=== PATIENT | female | born 1985 | race African-American/Black ===

== ENCOUNTER 2022-07-24 16:28 | Inpatient (IN) | payer MEDICARE, OTHER ==
[~2022-07-24] VITALS: Ht 160 cm; Wt 102.1 kg
[2022-07-24 16:00] VITALS: BP 133/80
[2022-07-24] MEDS ORDERED: CHOL100043 PO (17:22)
[2022-07-24] MEDS ORDERED: BENZ1LOZ58 MM (17:22)
[2022-07-24] MEDS ORDERED: SENN-261 PO (17:22)
[2022-07-24] MEDS ORDERED: CARV3.122 PO (17:22)
[2022-07-24] MEDS ORDERED: PREG-57 PO (17:22)
[2022-07-24] MEDS ORDERED: HYDR4TAB4 PO (17:22)
[2022-07-24] MEDS ORDERED: DOCU-141 PO (17:22)
[2022-07-24] MEDS ORDERED: IPRA0.2S9 IH (17:22)
[2022-07-24] MEDS ORDERED: ACET-2605 PO (17:22)
[2022-07-24] MEDS ORDERED: BICT1TAB PO (17:22)
[2022-07-24] MEDS ORDERED: PANT40TA49 PO (17:22)
[2022-07-24] MEDS ORDERED: DIVA-78 PO (17:22)
[2022-07-24] MEDS ORDERED: ALBU18HF2 INH (17:22)
[2022-07-24] MEDS ORDERED: MIDO5TAB4 PO (17:22)
[2022-07-24] MEDS ORDERED: ACET-868 PO (17:22)
[2022-07-24] MEDS ORDERED: HYDR-4077 PO (17:22)
[2022-07-24] MEDS ORDERED: FENO48TA6 PO (17:22)
[2022-07-24] MEDS ORDERED: FOLI0.8T2 PO (17:22)
[2022-07-24] MEDS ORDERED: ATOR40TA PO (17:22)
[2022-07-24] MEDS ORDERED: OLAN10TA3 PO (17:22)
[2022-07-24] MEDS ORDERED: Z GUARD REMEDY 4 OZ OINT TP PRN (17:30)
[2022-07-24] MEDS ORDERED: ACETAMINOPHEN 325 MG TABLET PO PRN (17:30)
[2022-07-24] MEDS ORDERED: ONDANSETRON HCL/PF 4 MG/2 ML VIAL IVP PRN (17:30)
[2022-07-24] MEDS ORDERED: CEFTRIAXONE 1 G in IV D5W 50 ML IV SCH ×2 (18:00→20:00)
[2022-07-24] MEDS ORDERED: VANCOMYCIN 1.25 GM in IV D5W 250 ML IV ONE (18:30)
--- NOTE | 2022-07-24 18:53 | NUR ---
PT REFUSED AN ECHOCARDIOGRAM, BLAKE KING WAS ADVISED.
[2022-07-24] MEDS ORDERED: ALBUTEROL SULFATE 8 GM HFA.AER.AD IH PRN (19:00)
[2022-07-24] MEDS ORDERED: IPRATROPIUM NEB FS 0.5 MG/2.5 ML AMPUL.NEB NEB PRN (19:00)
[2022-07-24] MEDS ORDERED: HYDROMORPHONE HCL 2 MG TABLET PO PRN (19:00)
[2022-07-24] MEDS ORDERED: DOCUSATE SODIUM 100 MG CAPSULE PO PRN (19:00)
--- NOTE | 2022-07-24 19:00 | NUR ---
TUGBOAT ENGINEER NOTES ADMITTED A 36 YO FEMAL PATIENT FROM [facility] WITH DX OF R/O TB , A/OX4 WITH FORGETFULNESS , ON ISOLATION FOR SUSPECTED TB , VERBALLY RESPONSIVE , NO C/O OF PAIN AND DISCOMFORT , NO SOB OR DISTRESS NOTED , BODY ASSESSMENT DONE AND NOTED WITH LEFT UPPER ARM FISTULA , FOR DIALYSIS ACCESS , RIGHT FOREARM IV G22 INTACT , DISTENDED ABDOMEN MEASURED 126 CM , DRY SCALY SKIN ON LEFT LOWER LEG , ON 3 LITERS OF O2 VIA NS CANULA , V/S TAKEN BP 133/80 , P 73 , RR 18 , TEMP 97.7 AND O2SAT 100% . AMBULATORY WITH BRP , STARTED WITH VANCOMYCIN IV ORDERED , ABLE TO EAT DINNER ON RENAL DIET 100% . SR U PX2 , SAFETY PRECAUTIONS PROVIDED , ALL BELONGINGS WERE CHECKED ON THE FORM , PHOTOS WERE TAKEN AND FILED , ALL NEEDS ATTENDED AND WILL CONTINUE TO MONITOR
[2022-07-24] MEDS ORDERED: ALBUTEROL FS 2.5 MG/0.5 ML VIAL.NEB NEB PRN (19:30)
--- NOTE | 2022-07-24 19:30 | NUR ---
MS RN OPENING NOTES RECEIVED PT LYING IN BED AWAKE. A/O X4. ON O2 AT 3LPM VIA NASAL CANULA. BREATHING EVEN AND NON-LABORED. NO C/O PAIN AT THIS TIME. NOT IN APPARENT DISTRESS. HAS RIGHT FOREARM IV ACCESS #22G WITH VANCO 500MG RUNNING AT 100 ML/HR. NO S/S OF INFILTRATION NOTED. HAS LEFT UPPER ARM AV FISTULA. THRILLS AND BRUITS PRESENT. SAFETY PRECAUTIONS IN PLACE: BED IN LOWEST POSITION AND LOCKED, SIDE RAILS UP X2, CALL LIGHT WITHIN REACH. WILL CONTINUE POC.
[2022-07-24 20:00] VITALS: BP 121/73
[2022-07-24] MEDS: MORPHINE SULFATE INJ 4 MG/ML DISP.SYRIN IV PRN (21:04)
[2022-07-24] MEDS: hydrALAZINE HCL 50 MG TABLET PO SCH (21:04)
--- NOTE | 2022-07-24 21:10 | NUR ---
MS RN NOTES PT C/O PULSATING PAIN ON HER ABDOMEN 07/14. PER PT, IT IS CHRONIC. VS WNL. ADMINISTERED PRN MORPHINE 4MG. TOLERATED WELL.
[2022-07-24] MEDS: PREGABALIN 25 MG CAPSULE PO SCH (21:27)
[2022-07-24] MEDS: ATORVASTATIN 40 MG TABLET PO SCH (21:27)
[2022-07-24] MEDS: CEFTRIAXONE 1 G in IV D5W 50 ML IV SCH (21:27)
--- NOTE | 2022-07-24 23:40 | NUR ---
MS RN NOTES PT C/O GENERALIZED PAIN 08/13. ADMINISTERED PRN DILAUDID. TOLERATED WELL, WILL CONTINUE TO MONITOR.
[2022-07-25] MEDS: SENNOSIDES 8.6 MG TABLET PO PRN ×2 (02:27→21:16)
[2022-07-25] MEDS: MORPHINE SULFATE INJ 4 MG/ML DISP.SYRIN IV PRN ×4 (02:27→21:18)
--- NOTE | 2022-07-25 02:30 | NUR ---
MS RN NOTES PT C/O LOWER ABDOMINAL PAIN 07/14. PT ALERT, NORMAL RR NOTED. ADMINISTERED WA MORPHINE. TOLERATED WELL. WILL CONTINUE TO MONITOR.
--- NOTE | 2022-07-25 06:21 | NUR ---
MS RN CLOSING NOTES PT LYING IN BED ASLEEP, EASY TO AROUSE. A/O X4, ABLE TO MAKE NEEDS KNOWN. ON O2 AT 3LPM VIA NASAL CANULA. NO SOB OR NOTED. NO C/O PAIN OR DISCOMFORT. AFEBRILE. ON AIRBORNE PRECAUTION. HAS RIGHT FOREARM IV ACCESS #22G AND SALINE LOCKED. INTACT, PATENT AND FLUSHING. HAS LEFT UPPER ARM AV FISTULA C/D/I. ALL DUE MEDS GIVEN AND NEEDS ATTENDED. AMBULATORY W/ STEADY GAIT. SAFETY MEASURES MAINTAINED: BED IN LOWEST POSITION AND LOCKED, SIDE RAILS UP X2, CALL LIGHT WITHIN REACH. WILL ENDORSE TO AM NURSE FOR DIONE.
[2022-07-25] MEDS: PANTOPRAZOLE 40 MG TABLET.DR PO SCH (06:57)
--- NOTE | 2022-07-25 07:12 | NUR ---
MS RN OPENING NOTES RECEIVED PATIENT RESTING IN BED, ON 3L OF O2 VIA NC, NO S/S OF RESPIRATORY DISTRESS. EASY TO AROUSE, A/Ox4, ABLE TO MAKE NEEDS KNOWN. NO COMPLAINT OF PAIN OR DISCOMFORT. IV ACCESS R FA #22 G SL. INTACT AND PATENT. QUIRINO AV FISTULA. CONTINENT, HAS BRP. AMBULATORY. SKIN IS INTACT. SAFETY MEASURES IN PLACE: BED LOCKED AND IN LOWEST POSITION, SIDE RAILS UP x2, CALL LIGHT WITHIN REACH, HOB ELEVATED. WILL CONTINUE TO MONITOR.
[2022-07-25] MEDS ORDERED: PANTOPRAZOLE 40 MG TABLET.DR PO SCH (07:30)
[2022-07-25] MEDS: DIVALPROEX SODIUM 500 MG TABLET.DR PO SCH (08:19)
[2022-07-25] MEDS: OLANZAPINE 10 MG TABLET PO SCH (08:19)
[2022-07-25] MEDS: CARVEDILOL 3.125 MG TABLET PO SCH ×2 (08:20→17:00)
[2022-07-25] MEDS: hydrALAZINE HCL 50 MG TABLET PO SCH ×4 (08:21→20:59)
[2022-07-25 08:22] LABS: CALCIUM, SERUM 7.5 mg/dL (8.5-10.1); MAGNESIUM 2.2 mg/dL (1.8-2.4); PHOSPHORUS 6.1 mg/dL (2.5-4.9); POTASSIUM 5.3 mmol/L (3.5-5.1)
[2022-07-25 08:44] LABS: BASOPHILS % (AUTO) 0.7 % (0.0-2.0); EOSINOPHILS % (AUTO) 2.3 % (0.0-6.0); HEMATOCRIT 33 % (33-45); HEMOGLOBIN 10.5 g/dL (11.5-14.8); LYMPHOCYTES # (AUTO) 0.7 K/uL (0.8-4.8); LYMPHOCYTES % (AUTO) 20.3 % (20.0-44.0); MEAN CORPUSCULAR HGB CONC 32 g/dl (31.0-36.0); MEAN CORPUSCULAR VOLUME 99 fL (82-100); MONOCYTES # (AUTO) 0.5 K/uL (0.1-1.30); MONOCYTES % (AUTO) 14.9 % (2.0-12.0); NEUTROPHILS # (AUTO) 2.2 K/uL (1.8-8.9); NEUTROPHILS % (AUTO) 61.8 % (43.0-81.0); PLATELET COUNT (AUTO) 158 K/uL (150-450); RED BLOOD CELL COUNT(AUTO) 3.36 MIL/uL (4.0-5.2); WHITE BLOOD COUNT (AUTO) 3.5 K/uL (4.3-11.0)
[2022-07-25] MEDS: Fenofibrate 48 MG TABLET PO SCH (09:54)
[2022-07-25 11:32] VITALS: BP 138/84
--- NOTE | 2022-07-25 12:08 | NUR ---
RN NOTES PATIENT COMPLAINED OF PAIN 9/10, PRN MORPHINE ADMINISTERED. WILL CONTINUE TO MONITOR PATIENT.
[2022-07-25] MEDS ORDERED: LIDOCAINE /MPF 1% VIAL 5 ML VIAL IJ PRN (16:30)
[2022-07-25] MEDS: MIDODRINE HCL (5MG) 5 MG TABLET PO PRN (16:55)
--- NOTE | 2022-07-25 19:30 | NUR ---
MS RN CLOSING NOTES RECEIVED PATIENT RESTING IN BED, STABLE ON 3L OF O2 VIA NC, NO S/S OF RESPIRATORY DISTRESS. EASY TO AROUSE, A/Ox4, ABLE TO MAKE NEEDS KNOWN. NO COMPLAINT OF PAIN OR DISCOMFORT. IV ACCESS R FA #22 G SL. INTACT AND PATENT. QUIRINO AV FISTULA. CONTINENT, HAS BRP. AMBULATORY. SKIN IS INTACT. SAFETY MEASURES MAINTAINED: BED LOCKED AND IN LOWEST POSITION, SIDE RAILS UP x2, CALL LIGHT WITHIN REACH, HOB ELEVATED. WILL ENDORSE TO NEXT SHIFT DIONE.
--- NOTE | 2022-07-25 19:30 | NUR ---
MS RN OPENING NOTES RECEIVED PT LYING IN BED AWAKE, HD ONGOING. A/O X4. ON O2 AT 3LPM VIA NASAL CANULA. BREATHING EVEN AND NON-LABORED. NO C/O PAIN AT THIS TIME. NOT IN APPARENT DISTRESS. HAS RIGHT FOREARM IV ACCESS #22G AND SALINE LOCKED. NO S/S OF INFILTRATION NOTED. HAS LEFT UPPER ARM AV FISTULA. THRILLS AND BRUITS PRESENT. SAFETY PRECAUTIONS IN PLACE: BED IN LOWEST POSITION AND LOCKED, SIDE RAILS UP X2, CALL LIGHT WITHIN REACH. WILL CONTINUE POC.
[2022-07-25 20:00] VITALS: BP 102/49
[2022-07-25] MEDS: PREGABALIN 25 MG CAPSULE PO SCH (21:16)
[2022-07-25] MEDS: ATORVASTATIN 40 MG TABLET PO SCH (21:16)
[2022-07-25] MEDS: CEFTRIAXONE 1 G in IV D5W 50 ML IV SCH (21:18)
--- NOTE | 2022-07-25 21:34 | NUR ---
MS RN NOTES PT C/O GENERALIZED CHRONIC PAIN 08/13. PRN MORPHINE SULFATE 4MG ADMINISTERED AND TOLERATED WELL. WILL CONTINUE PAIN MANAGEMENT.
--- NOTE | 2022-07-26 03:00 | NUR ---
MS RN NOTES PT C/O PULLING ABDOMINAL PAIN 08/13. DISTENDED ABDOMEN. PRN MORPHINE SO4 4MG ADMINISTERED AND TOLERATED WELL. DOCUMENTATION DONE [facility].
[2022-07-26 05:07] LABS: *BASOS 1 % (Not Estab.); *EOS 3 % (Not Estab.); *EOS, ABSOLUTE 0.1 x10E3/uL (0.0-0.4); *HCT 29.1 % (34.0-46.6); *HGB 9.6 g/dL (11.1-15.9); *IMMATURE GRANULOCYTES 1 % (Not Estab.); *LYMPHOCYTES 20 % (Not Estab.); *LYMPHS, ABSOLUTE 0.8 x10E3/uL (0.7-3.1); *MCV 97 fL (79-97); *MONOCYTES 13 % (Not Estab.); *MONOS, ABSOLUTE 0.5 x10E3/uL (0.1-0.9); *NEUTROPHILS 62 % (Not Estab.); *NEUTROPHILS, ABSOLUTE 2.7 x10E3/uL (1.4-7.0); *PLT 141 x10E3/uL (150-450); *RDW 14.5 % (11.7-15.4)
--- NOTE | 2022-07-26 07:09 | NUR ---
MS RN CLOSING NOTES PT LYING IN BED ASLEEP, EASY TO AROUSE. A/O X4, ABLE TO MAKE NEEDS KNOWN. ON O2 AT 3LPM VIA NASAL CANULA. NO SOB OR NOTED. DENIES PAIN AT THIS TIME. AFEBRILE. ON AIRBORNE PRECAUTION. HAS RIGHT FOREARM IV ACCESS #22G AND SALINE LOCKED. INTACT, PATENT AND FLUSHING. HAS LEFT UPPER ARM AV FISTULA C/D/I. COMPLETED HD WITH 1.5L OUTPUT. ALL DUE MEDS GIVEN AND NEEDS ATTENDED. SAFETY MEASURES MAINTAINED: BED IN LOWEST POSITION AND LOCKED, SIDE RAILS UP X2, CALL LIGHT WITHIN REACH. WILL ENDORSE TO AM NURSE FOR DIONE.
[2022-07-26 07:17] LABS: BASOPHILS % (AUTO) 0.2 % (0.0-2.0); EOSINOPHILS % (AUTO) 2.2 % (0.0-6.0); HEMATOCRIT 33 % (33-45); HEMOGLOBIN 10.4 g/dL (11.5-14.8); LYMPHOCYTES # (AUTO) 0.8 K/uL (0.8-4.8); LYMPHOCYTES % (AUTO) 22.5 % (20.0-44.0); MEAN CORPUSCULAR HGB CONC 32 g/dl (31.0-36.0); MEAN CORPUSCULAR VOLUME 99 fL (82-100); MONOCYTES # (AUTO) 0.5 K/uL (0.1-1.30); MONOCYTES % (AUTO) 14.4 % (2.0-12.0); NEUTROPHILS # (AUTO) 2.2 K/uL (1.8-8.9); NEUTROPHILS % (AUTO) 60.7 % (43.0-81.0); PLATELET COUNT (AUTO) 150 K/uL (150-450); RED BLOOD CELL COUNT(AUTO) 3.32 MIL/uL (4.0-5.2); WHITE BLOOD COUNT (AUTO) 3.6 K/uL (4.3-11.0)
--- NOTE | 2022-07-26 07:30 | NUR ---
MS RN OPENING NOTES RECEIVED PATIENT ON BED AWAKE AND A/O X4. ON O2 AT 3LPM VIA NASAL CANNULA TOLERATING WELL. NO SOB NOTED. NOT IN DISTRESS. WITH NO COMPLAINTS OF PAIN OR DISCOMFORT AT THIS TIME. WITH IV ACCESS AT THE RIGHT FOREARM G22 SALINE LOCKED, PATENT AND INTACT. WITH LEFT AV FISTULA FOR HEMODIALYSIS. SAFETY MEASURES IN PLACED. CALL LIGHT WITHIN REACH. BED ON LOWEST LOCKED POSITION, SIDE RAILS UP X2. WILL CONTINUE TO MONITOR.
[2022-07-26 08:01] LABS: CALCIUM, SERUM 7.5 mg/dL (8.5-10.1); CREATININE 5.9 mg/dL (0.6-1.3); MAGNESIUM 2.1 mg/dL (1.8-2.4); PHOSPHORUS 5.6 mg/dL (2.5-4.9); POTASSIUM 5.1 mmol/L (3.5-5.1)
[2022-07-26] MEDS: Fenofibrate 48 MG TABLET PO SCH (08:40)
[2022-07-26] MEDS: DIVALPROEX SODIUM 500 MG TABLET.DR PO SCH (08:40)
[2022-07-26] MEDS: PANTOPRAZOLE 40 MG TABLET.DR PO SCH (08:41)
[2022-07-26] MEDS: hydrALAZINE HCL 50 MG TABLET PO SCH ×4 (08:41→20:51)
[2022-07-26] MEDS: CARVEDILOL 3.125 MG TABLET PO SCH ×2 (08:41→17:15)
[2022-07-26] MEDS: OLANZAPINE 10 MG TABLET PO SCH (08:42)
[2022-07-26] MEDS: MORPHINE SULFATE INJ 4 MG/ML DISP.SYRIN IV PRN ×3 (09:07→21:40)
[2022-07-26 10:07] LABS: *% CD 4 POS. LYMPH 34.1 % (30.8-58.5); *% CD 8 POS. LYMPH 25.5 % (12.0-35.5); *ABSOLUTE CD 4 HELPER 273 /uL (359-1519); *ABSOLUTE CD 8 SUPPRESSOR 204 /uL (109-897); *CD4/CD8 RATIO 1.34 (0.92-3.72)
[2022-07-26] MEDS: VANCOMYCIN POST DIALYSIS 500MG IV PRN ×2 (11:01)
--- NOTE | 2022-07-26 13:24 | NUR ---
I INFORMED BLAKE BERGMAN AT 11.[address] STAT INR FRO THE PROCEDURE, AT 13.25 INR WAS STILL N/A, CALLED LAB AND THE KILN FIREMAN SAID THAT THE PATIENT IS REFUSING, CALLED RN AGAIN AND INFORMED HER, AND LAB WILL TRY AGAIN, FU
[2022-07-26 16:00] VITALS: BP 110/61
--- NOTE | 2022-07-26 17:40 | NUR ---
At 15:30 pm CONSENT NOT SIGNED PER RN NISHI BERGMAN RN CALLED, PATIENT IS REFUSING TO SIGN AT 15:40 PM, FU FOR TOMORROW MORNING
[2022-07-26] MEDS ORDERED: VANCOMYCIN 1 GM in IV D5W 250ml IV ONE (18:00)
[2022-07-26 20:00] VITALS: BP 117/52
[2022-07-26] MEDS: PREGABALIN 25 MG CAPSULE PO SCH (21:29)
[2022-07-26] MEDS: ATORVASTATIN 40 MG TABLET PO SCH (21:29)
[2022-07-26] MEDS: CEFTRIAXONE 1 G in IV D5W 50 ML IV SCH (21:29)
[2022-07-27] MEDS: MORPHINE SULFATE INJ 4 MG/ML DISP.SYRIN IV PRN ×2 (02:18→09:15)
--- NOTE | 2022-07-27 06:36 | NUR ---
MS RN CLOSING NOTES PATIENT ON BED RESTING AND A/O X4. ON O2 AT 3LPM VIA NASAL CANNULA TOLERATING WELL. NO SOB NOTED. NOT IN DISTRESS. WITH NO COMPLAINTS OF PAIN OR DISCOMFORT AT THIS TIME. WITH IV ACCESS AT THE RIGHT FOREARM G22 SALINE LOCKED, PATENT AND INTACT. WITH LEFT AV FISTULA FOR HEMODIALYSIS. DUE MEDS GIVEN. SAFETY MEASURES IN PLACED. CALL LIGHT WITHIN REACH. BED ON LOWEST LOCKED POSITION, SIDE RAILS UP X2. WILL ENDORSE TO NEXT SHIFT FOR DIONE.
[2022-07-27 06:59] LABS: BASOPHILS % (AUTO) 0.3 % (0.0-2.0); EOSINOPHILS % (AUTO) 2.2 % (0.0-6.0); HEMATOCRIT 32 % (33-45); LYMPHOCYTES # (AUTO) 0.7 K/uL (0.8-4.8); LYMPHOCYTES % (AUTO) 16.9 % (20.0-44.0); MEAN CORPUSCULAR HGB CONC 32 g/dl (31.0-36.0); MEAN CORPUSCULAR VOLUME 98 fL (82-100); MONOCYTES # (AUTO) 0.7 K/uL (0.1-1.30); MONOCYTES % (AUTO) 15.3 % (2.0-12.0); NEUTROPHILS # (AUTO) 2.8 K/uL (1.8-8.9); NEUTROPHILS % (AUTO) 65.3 % (43.0-81.0); PLATELET COUNT (AUTO) 140 K/uL (150-450); RED BLOOD CELL COUNT(AUTO) 3.21 MIL/uL (4.0-5.2); WHITE BLOOD COUNT (AUTO) 4.3 K/uL (4.3-11.0)
--- NOTE | 2022-07-27 07:00 | NUR ---
MS RN OPENING NOTE PATIENT LAYING IN BED, A/O X 4, ABLE TO MAKE NEEDS KNOWN, ON 3 LPM O2 VIA CANNULA WITH INTERMITTENT COUGH, PENDING SPUTUM CULTURE RESULT. ON AIRBORNE PRECAUTION TO R/O TB. NO COMPLAINTS OF PAIN OR DISCOMFORT AT THIS TIME. R FA # 22 G SL CLEAN, INTACT, AND FLUSHING WELL. L AC FISTULA FOR HD ACCESS. SAFETY MEASURES IN PLACE: BED IN LOWEST LOCKED POSITION, SIDE RAILS UP X 2, CALL LIGHT WITHIN REACH, WILL CONTINUE TO MONITOR.
[2022-07-27 07:16] LABS: CALCIUM, SERUM 7.1 mg/dL (8.5-10.1); CREATININE 7.4 mg/dL (0.6-1.3); MAGNESIUM 2.2 mg/dL (1.8-2.4); PHOSPHORUS 6.9 mg/dL (2.5-4.9)
[2022-07-27] MEDS: PANTOPRAZOLE 40 MG TABLET.DR PO SCH (07:45)
[2022-07-27 07:52] LABS: POTASSIUM 6.4 mmol/L (3.5-5.1)
[2022-07-27] MEDS: hydrALAZINE HCL 50 MG TABLET PO SCH ×5 (08:32→21:07)
[2022-07-27] MEDS: CARVEDILOL 3.125 MG TABLET PO SCH ×3 (08:33→16:59)
[2022-07-27] MEDS: OLANZAPINE 10 MG TABLET PO SCH (08:41)
[2022-07-27] MEDS: DIVALPROEX SODIUM 500 MG TABLET.DR PO SCH (08:41)
[2022-07-27] MEDS: Fenofibrate 48 MG TABLET PO SCH (09:14)
[2022-07-27] MEDS ORDERED: ALBUTEROL FS 2.5 MG/0.5 ML VIAL.NEB NEB PRN (12:00)
--- NOTE | 2022-07-27 15:59 | NUR ---
MS RN NOTE PATIENT WITH 4 L FLUID REMOVED VIA PARACENTESIS AND 2.5 L VIA HEMODIALYSIS. V/S: BP 126/69, HR 91, RR 18, T 98.0, O2 99% ON ROOM AIR. A/O X 3.
--- NOTE | 2022-07-27 16:30 | NUR ---
MS RN NOTES PATIENT FOUND LAYING ON GROUND IN ROOM, HELPED UP BACK INTO BED, MD NOTIFIED AND STAT CT ORDERED.
--- NOTE | 2022-07-27 17:00 | NUR ---
MS RN NOTES PATIENT TRANSPORTED DOWNSTAIRS TO CT SCAN [place] [facility] [place]
--- NOTE | 2022-07-27 18:50 | NUR ---
MS RN NOTES PATIENT RETURNED TO UNIT, NEURO CHECK COMPLETED, NO CHANGES NOTED
--- NOTE | 2022-07-27 19:00 | NUR ---
MS RN NOTE' INCIDENT REPORT COMPLETED FOR FALL INCIDENT
[2022-07-27] MEDS: PREGABALIN 25 MG CAPSULE PO SCH (21:08)
[2022-07-27] MEDS: ATORVASTATIN 40 MG TABLET PO SCH (21:08)
[2022-07-27] MEDS: CEFTRIAXONE 1 G in IV D5W 50 ML IV SCH (21:08)
[2022-07-27 21:12] VITALS: BP 138/71
[2022-07-28 06:40] LABS: BASOPHILS % (AUTO) 0.5 % (0.0-2.0); HEMATOCRIT 35 % (33-45); HEMOGLOBIN 11.1 g/dL (11.5-14.8); LYMPHOCYTES # (AUTO) 0.8 K/uL (0.8-4.8); LYMPHOCYTES % (AUTO) 14.3 % (20.0-44.0); MEAN CORPUSCULAR HGB CONC 32 g/dl (31.0-36.0); MEAN CORPUSCULAR VOLUME 99 fL (82-100); MONOCYTES # (AUTO) 0.7 K/uL (0.1-1.30); MONOCYTES % (AUTO) 12.9 % (2.0-12.0); NEUTROPHILS % (AUTO) 71.3 % (43.0-81.0); PLATELET COUNT (AUTO) 151 K/uL (150-450); RED BLOOD CELL COUNT(AUTO) 3.53 MIL/uL (4.0-5.2); WHITE BLOOD COUNT (AUTO) 5.7 K/uL (4.3-11.0)
--- NOTE | 2022-07-28 07:00 | NUR ---
MS RN OPENING NOTE PATIENT LAYING IN BED, A/O X 2-3, ABLE TO MAKE NEEDS KNOWN, ON 5 LPM O2 VIA CANNULA. AIRBORNE PRECAUTIONS IN PLACE TO R/O TB. NO COMPLAINTS OF PAIN OR DISCOMFORT AT THIS TIME. R FA # 22 G SL CLEAN, INTACT, AND FLUSHING WELL. L AC FISTULA FOR HD ACCESS. SAFETY MEASURES IN PLACE: BED IN LOWEST LOCKED POSITION, SIDE RAILS UP X 2, CALL LIGHT WITHIN REACH, WILL CONTINUE TO MONITOR.
[2022-07-28] MEDS: PANTOPRAZOLE 40 MG TABLET.DR PO SCH ×2 (07:11→07:30)
[2022-07-28 07:56] LABS: CALCIUM, SERUM 7.8 mg/dL (8.5-10.1); CREATININE 7.2 mg/dL (0.6-1.3); MAGNESIUM 2.2 mg/dL (1.8-2.4); PHOSPHORUS 6.8 mg/dL (2.5-4.9); POTASSIUM 5.3 mmol/L (3.5-5.1)
[2022-07-28 08:00] VITALS: BP 102/46
[2022-07-28] MEDS: OLANZAPINE 10 MG TABLET PO SCH ×2 (08:18→09:00)
[2022-07-28] MEDS: Fenofibrate 48 MG TABLET PO SCH ×2 (08:18→09:00)
[2022-07-28] MEDS: DIVALPROEX SODIUM 500 MG TABLET.DR PO SCH ×2 (08:18→09:00)
[2022-07-28] MEDS: hydrALAZINE HCL 50 MG TABLET PO SCH ×4 (08:20→21:30)
[2022-07-28] MEDS: CARVEDILOL 3.125 MG TABLET PO SCH ×2 (08:20→16:32)
[2022-07-28] MEDS: VANCOMYCIN POST DIALYSIS 500MG IV PRN ×2 (09:18)
[2022-07-28] MEDS ORDERED: *INSULIN REGULAR(HUMULIN R)HUM 100 UNIT/ML VIAL SQ PRN (10:30)
[2022-07-28] MEDS ORDERED: DEXTROSE 50%-WATER 50 ML DISP.SYRIN IV PRN (10:30)
--- NOTE | 2022-07-28 10:42 | NUR ---
MS RN NOTES SPOKE WITH BLAKE TOLENTINO AT [facility] REGARDING PATIENT MEDICATION BIKTARVY WHICH IS NOT STOCKED IN [facility]. PATIENT HAS NO LISTED NEXT OF [facility] OR [facility] WHO COULD TRANSPORT THE MEDICATION TO [place]. RN STATED HE WOULD CONTACT HIS DON TO DISCUSS WHETHER THE SNF WOULD BE ABLE TO SEND THE MEDICATION TO [facility] DIRECTLY.
[2022-07-28] MEDS: BLOOD SUGAR DIAGNOSTIC 1 EACH STRIP VI SCH ×3 (11:46→21:30)
--- NOTE | 2022-07-28 15:00 | NUR ---
MS RN NOTE PATIENT COMPLAINT OF 8/10 GENERALIZED PAIN AND REQUESTING PAIN MEDICATION. PRN MORPHINE 4 MG IV ADMINISTERED ORDERED. WILL CONTINUE TO MONITOR FOR S/S PAIN .
[2022-07-28] MEDS: MORPHINE SULFATE INJ 4 MG/ML DISP.SYRIN IV PRN (15:02)
[2022-07-28 16:00] VITALS: BP 108/56
--- NOTE | 2022-07-28 18:55 | NUR ---
MS RN CLOSING NOTES PATIENT LAYING IN BED, A/O X 2-3, ABLE TO MAKE NEEDS KNOWN, ON 5 LPM O2 VIA CANNULA. AIRBORNE PRECAUTIONS IN PLACE TO R/O TB. NO COMPLAINTS OF PAIN OR DISCOMFORT AT THIS TIME. R FA # 22 G SL CLEAN, INTACT, AND FLUSHING WELL. L AC FISTULA FOR HD ACCESS. SAFETY MEASURES IN PLACE: BED IN LOWEST LOCKED POSITION, SIDE RAILS UP X 2, CALL LIGHT WITHIN REACH. ALL NEEDS MET. WILL ENDORSE TO JOB PRESS OPERATOR FOR DIONE.
[2022-07-28 20:00] VITALS: BP 111/52
--- NOTE | 2022-07-28 20:19 | NUR ---
RN OPENING NOTE PATIENT AWAKE IN BED. A/OX2. NO S/S OF DISTRESS, BREATHING WITHOUT DIFFICULT ON ROOM AIR. RFA #22 SL INTACT AND PATENT; LAC FISTULA INTACT. SAFETY MEASURES IN PLACE: BED LOCKED AT LOWEST LEVEL, RAILS UP X2, CALL GOMEZ WITHIN REACH. WILL CONTINUE TO MONITOR PATIENT.
[2022-07-28] MEDS: ATORVASTATIN 40 MG TABLET PO SCH (21:29)
[2022-07-28] MEDS: CEFTRIAXONE 1 G in IV D5W 50 ML IV SCH (21:29)
[2022-07-28] MEDS: PREGABALIN 25 MG CAPSULE PO SCH (21:30)
--- NOTE | 2022-07-29 06:14 | NUR ---
RN NOTE CALLED [facility] @ AND SPOKE WITH KURT REGARDING FOLLOWING-UP ON PATIENT'S BIKTARVY. KURT STATED SHE WOULD BE FOLLOWING-UP WITH HER D.O.N. VIA CELL TO FIND OUT HOW TO COORDINATE THIS, IF POSSIBLE.
[2022-07-29] MEDS: MORPHINE SULFATE INJ 4 MG/ML DISP.SYRIN IV PRN ×3 (06:27→23:19)
--- NOTE | 2022-07-29 06:40 | NUR ---
RN CLOSING NOTE PATIENT AWAKE IN BED. A/OX1. NO S/S OF DISTRESS, BREATHING WITHOUT DIFFICULTY ON 4L NC. RFA #22 SL; LAC FISTULA. BED LOCKED AT LOWEST POSITION, RAILS UP X2, CALL GOMEZ WITHIN REACH. WILL ENDORSE TO NEXT SHIFT FOR DIONE.
[2022-07-29 06:49] LABS: CALCIUM, SERUM 6.8 mg/dL (8.5-10.1); POTASSIUM 5.1 mmol/L (3.5-5.1)
[2022-07-29] MEDS: PANTOPRAZOLE 40 MG TABLET.DR PO SCH (07:30)
--- NOTE | 2022-07-29 07:31 | NUR ---
MS RN OPENING NOTE PATIENT LAYING IN BED, A/O X 2-3, TOLERATING WELL ON 4 LPM O2 VIA CANNULA. NO COMPLAINTS OF PAIN OR DISCOMFORT AT THIS TIME. R FA # 22 G SL CLEAN, INTACT, AND FLUSHING WELL. L AC FISTULA PRESENT FOR HD ACCESS. SAFETY MEASURES IN PLACE: BED IN LOWEST LOCKED POSITION, SIDE RAILS UP X 2, CALL LIGHT WITHIN REACH. WILL CONTINUE TO MONITOR.
[2022-07-29 08:00] VITALS: BP 113/57
[2022-07-29] MEDS: BLOOD SUGAR DIAGNOSTIC 1 EACH STRIP VI SCH ×4 (08:00→22:23)
[2022-07-29] MEDS: CARVEDILOL 3.125 MG TABLET PO SCH ×2 (08:06→17:00)
[2022-07-29] MEDS: hydrALAZINE HCL 50 MG TABLET PO SCH ×4 (08:06→21:00)
[2022-07-29] MEDS: Fenofibrate 48 MG TABLET PO SCH (08:20)
[2022-07-29] MEDS: DIVALPROEX SODIUM 500 MG TABLET.DR PO SCH (08:21)
[2022-07-29] MEDS: OLANZAPINE 10 MG TABLET PO SCH (08:21)
[2022-07-29 10:19] LABS: ALBUMIN 2.8 g/dL (3.4-5.0); BILIRUBIN,DIRECT 0.3 mg/dL (0.0-0.2); BILIRUBIN,TOTAL 0.5 mg/dL (0.2-1.0); TOTAL PROTEIN, SERUM 7.6 g/dL (6.4-8.2)
[2022-07-29 10:29] LABS: C-REACTIVE PROTEIN 4.1 mg/dL (0.0-0.9)
[2022-07-29 16:00] VITALS: BP 96/48
[2022-07-29] MEDS: VANCOMYCIN POST DIALYSIS 500MG IV PRN ×2 (18:45)
--- NOTE | 2022-07-29 19:39 | NUR ---
MS RN OPENING NOTE RECEIVED PATIENT IN BED AA/O X 2-3, TOLERATING WELL ON 4 LPM O2 VIA CANNULA.NO SOB/DISTRESS NOTED, NO COMPLAINTS OF PAIN OR DISCOMFORT AT THIS TIME. R FA # 22 G SL CLEAN, INTACT, AND FLUSHING WELL. L AC FISTULA PRESENT FOR HD ACCESS PATENT AND INTACT,SAFETY MEASURES IN PLACE: BED IN LOWEST LOCKED POSITION, SIDE RAILS UP X 2, CALL LIGHT WITHIN REACH. WILL CONTINUE TO MONITOR.
[2022-07-29 20:00] VITALS: BP 99/63
--- NOTE | 2022-07-29 21:00 | NUR ---
RN NOTES; HYDRALAZINE WAS HOLD DUE BP 99/63.
[2022-07-29] MEDS: CEFTRIAXONE 1 G in IV D5W 50 ML IV SCH (21:35)
[2022-07-29] MEDS: ATORVASTATIN 40 MG TABLET PO SCH (21:36)
[2022-07-29] MEDS: PREGABALIN 25 MG CAPSULE PO SCH (21:36)
--- NOTE | 2022-07-29 23:19 | NUR ---
RN NOTES; PATIENT COMPLAINED OF GEN,BODY PAIN 8/10,PRN MORPHINE 4MG INJ.WAS GIVEN.NO A/R NOTED.
[2022-07-30 04:00] VITALS: BP 103/40
[2022-07-30] MEDS: MORPHINE SULFATE INJ 4 MG/ML DISP.SYRIN IV PRN ×3 (04:21→22:00)
--- NOTE | 2022-07-30 04:21 | NUR ---
RN NOTES; PATIENT COMPLAINED OF GEN,BODY PAIN 8/10,PRN MORPHINE 4MG INJ.WAS GIVEN.NO A/R NOTED.
--- NOTE | 2022-07-30 06:21 | NUR ---
MS RN CLOSING NOTE; PATIENT IN BED AA/O X 2-3, TOLERATING WELL ON 4 LPM O2 VIA NC .NO SOB/DISTRESS NOTED, BREATHING EVEN AND UNLABORED.DUE MEDS GIVEN ORDER,ALL NEEDS ATTENDED,R FA # 22 G SL CLEAN, INTACT, AND FLUSHING WELL. L UA FISTULA PRESENT FOR HD ACCESS PATENT AND INTACT,SAFETY MEASURES IN PLACE: BED IN LOWEST LOCKED POSITION, SIDE RAILS UP X 2, CALL LIGHT WITHIN REACH. WILL ENDORSED TO NEXT SHIFT.
[2022-07-30 06:28] LABS: CALCIUM, SERUM 6.6 mg/dL (8.5-10.1); CREATININE 6.6 mg/dL (0.6-1.3); POTASSIUM 4.5 mmol/L (3.5-5.1)
[2022-07-30] MEDS: BLOOD SUGAR DIAGNOSTIC 1 EACH STRIP VI SCH ×4 (06:40→22:00)
[2022-07-30 08:00] VITALS: BP 101/92
[2022-07-30] MEDS: OLANZAPINE 10 MG TABLET PO SCH (08:18)
[2022-07-30] MEDS: PANTOPRAZOLE 40 MG TABLET.DR PO SCH (08:18)
[2022-07-30] MEDS: Fenofibrate 48 MG TABLET PO SCH (08:19)
[2022-07-30] MEDS: CARVEDILOL 3.125 MG TABLET PO SCH ×2 (08:19→17:00)
[2022-07-30] MEDS: DIVALPROEX SODIUM 500 MG TABLET.DR PO SCH (08:19)
[2022-07-30] MEDS: hydrALAZINE HCL 50 MG TABLET PO SCH ×4 (08:20→21:58)
--- NOTE | 2022-07-30 09:33 | NUR ---
RN OPENING NOTES RECEIVED PATIENT IN BED A/O X 3, TOLERATING WELL ON 4L O2, NO SIGNS OF RESPIRATORY DISTRESS NOTED. IV RFA 22G SL. CLEAN, DRY AND INTACT. QUIRINO FISTULA PRESENT FOR HD ACCESS PATENT AND INTACT. SAFETY MEASURES IN PLACE, BED IN LOWEST LOCKED POSITION, SIDE RAILS UP X 2, CALL LIGHT WITHIN REACH. WILL CONTINUE TO MONITOR.
[2022-07-30] MEDS: INSULIN REGULAR, HUMAN 100 UNIT/ML 3 ML VIAL SQ PRN (11:26)
--- NOTE | 2022-07-30 18:35 | NUR ---
RN CLOSING NOTES PATIENT IN BED A/O X 2, TOLERATING WELL ON 4L O2 VIA NC, NO SOB/DISTRESS NOTED, BREATHING EVEN AND UNLABORED.RFA 22G SL - CLEAN, INTACT, AND FLUSHING WELL. QUIRINO FISTULA PRESENT FOR HD ACCESS PATENT AND INTACT. SAFETY MEASURES IN PLACE: BED IN LOWEST LOCKED POSITION, SIDE RAILS UP X 2, CALL LIGHT WITHIN REACH. WILL ENDORSED TO NEXT SHIFT.
[2022-07-30 20:41] VITALS: BP 129/59
[2022-07-30] MEDS: ATORVASTATIN 40 MG TABLET PO SCH (21:57)
[2022-07-30] MEDS: PREGABALIN 25 MG CAPSULE PO SCH (21:58)
[2022-07-30] MEDS: CEFTRIAXONE 1 G in IV D5W 50 ML IV SCH (21:58)
--- NOTE | 2022-07-30 22:00 | NUR ---
MSRN VERBALIZES GENERALIZED PAIN, MORPHINE 4 MG IVP ADMINISTERED.POSITIONS SELF FOR COMFORT, CLOSELY WATCHED. REMINDED TO CALL STAFF FOR ANY ASSISTANCE OR FURTHER DISCOMFORTS. CALL LIGHT WITH REACH.
[2022-07-31] MEDS: MORPHINE SULFATE INJ 4 MG/ML DISP.SYRIN IV PRN ×3 (04:04→17:23)
--- NOTE | 2022-07-31 04:48 | NUR ---
MSRN AWAKE, OOB ON A CHAIR, RESTING QUIETLY. ALL NEEDS ATTENDED. STABLE FOR NOW. VERY PLEASANT AND COOPERATIVE. KEPT COMFORTABLE. TO CONTINUE.
--- NOTE | 2022-07-31 07:01 | NUR ---
MSRN FULLY AWAKE, NO NEEDS MADE.
--- NOTE | 2022-07-31 07:26 | NUR ---
MS RN OPENING NOTE RECEIVED PT ASLEEP IN BED, EASILY AROUSED. PT IS A/O X3, ABLE TO MAKE NEEDS KNOWN. ON RA, TOLERATING WELL. NO SOB NOTED. NOT IN ANY SIGN OF RESPIRATORY DISTRESS. IV ACCESS IN RFA G #22 INTACT AND PATENT. SAFETY MEASURES IN PLACE: BED IN LOWEST AND LOCKED POSITION, SIDE RAILS UPX2, AND CALL LIGHT WITHIN REACH. WILL CONTINUE TO MONITOR PT.
[2022-07-31 08:00] VITALS: BP 111/49
[2022-07-31] MEDS: DIVALPROEX SODIUM 500 MG TABLET.DR PO SCH (08:23)
[2022-07-31] MEDS: PANTOPRAZOLE 40 MG TABLET.DR PO SCH (08:23)
[2022-07-31] MEDS: BLOOD SUGAR DIAGNOSTIC 1 EACH STRIP VI SCH ×3 (08:23→17:33)
[2022-07-31] MEDS: Fenofibrate 48 MG TABLET PO SCH (08:23)
[2022-07-31] MEDS: hydrALAZINE HCL 50 MG TABLET PO SCH ×3 (08:23→17:00)
[2022-07-31] MEDS: OLANZAPINE 10 MG TABLET PO SCH (08:23)
[2022-07-31] MEDS: CARVEDILOL 3.125 MG TABLET PO SCH ×2 (08:24→17:00)
--- NOTE | 2022-07-31 09:49 | NUR ---
RN NOTE PT C/O HER WHOLE BODY PAIN WITH PAIN SCALE LEVEL OF 8/10 AND REQUESTED FOR MORPHINE. MORPHINE 4MG IVP ADMINISTERED ORDERED PRN Q4H. WILL MONITOR AND REASSESS PT.
[2022-07-31] MEDS: INSULIN REGULAR, HUMAN 100 UNIT/ML 3 ML VIAL SQ PRN ×2 (12:26→17:34)
--- NOTE | 2022-07-31 13:10 | NUR ---
RN NOTE HD STARTED BY [facility] NURSE VIA QUIRINO FISTULA. VITAL SIGNS: BP 97/52, R 18, TEMP 97.6, P 79, SPO2 96%. WILL CONTINUE TO MONITOR PT.
[2022-07-31] MEDS: MIDODRINE HCL (5MG) 5 MG TABLET PO PRN (13:18)
--- NOTE | 2022-07-31 13:18 | NUR ---
RN NOTE PT NOTED WITH LOW BP OF 88/47 PRE DIALYSIS ASSESSED BY DIALYSIS NURSE. REASSESSED PT'S BP MANUALLY AND IT'S 97/50. MIDODRINE 5MG PO ADMINISTERED ORDERED PRN Q8HR. WILL MONITOR AND REASSESS PT.
--- NOTE | 2022-07-31 13:20 | NUR ---
RN NOTE MADE DR. REYES AWARE OF THE PT'S LOW BP WITH NO ORDERS NOTED AT THIS TIME. ALSO CLARIFIED IF HE STILL WANT THE PT DISCHARGED AND PER MD STILL OK FOR DISCHARGE BECAUSE PT IS STABLE.
[2022-07-31 16:00] VITALS: BP 90/48
--- NOTE | 2022-07-31 16:00 | NUR ---
RN NOTE HD ENDED WITH NO OUTPUT NOTED BY [facility] NURSE. VITAL SIGNS: BP 97/49, P 75, R 18, TEMP 97.8, SPO2 96%.
[2022-07-31 17:00] VITALS: BP 99/65
--- NOTE | 2022-07-31 19:43 | NUR ---
CONSULTANT LUXURY AND AUTO. VICE PRESIDENT JAGUAR BRAND (EX ) NOTE PT DISCHARGED TO [facility] IN STABLE CONDITION. PT A/O X3, ABLE TO MAKE NEEDS KNOWN. ON O2 AT 4L/MIN VIA NASAL CANNULA, TOLERATING WELL WITH SPO2 96%. NO SOB NOTED. NOT IN ANY SIGN OF RESPIRATORY DISTRESS. VITAL SIGNS TAKEN, STABLE, AND RECORDED. PT REFUSED SKIN ASSESSMENTS AND PHOTOGRAPHS OF SKIN ISSUES. ALL BELONGINGS ACCOUNTED FOR. DISCHARGED INSTRUCTIONS AND HEALTH TEACHINGS GIVEN TO PT AND PT VERBALIZED UNDERSTANDING. IV ACCESS IN RFA G #22 REMOVED WITH NO ACTIVE BLEEDING NOTED. DRY PRESSURE DRESSING APPLIED TO SITE. QUIRINO FISTULA INTACT WITH DRESSING IN PLACE. REPORT GIVEN EARLIER TO DARNELL FERRARA OF [place] AT [facility]. PT LEFT THE UNIT AT [address] [facility] [employer]. PICKED UP BY 2 TIME STUDY STATISTICIAN. MD AND CHARGED NURSE AWARE OF DISCHARGED.
[2022-08-01 00:06] LABS: CMV, IgG >10.00 U/mL (0.00-0.59); CMV, IgM <30.0 AU/mL (0.0-29.9)
[2022-08-01 06:06] LABS: *BASOS 0 % (Not Estab.); *EOS 2 % (Not Estab.); *EOS, ABSOLUTE 0.1 x10E3/uL (0.0-0.4); *HCT 27.6 % (34.0-46.6); *HGB 8.9 g/dL (11.1-15.9); *IMMATURE GRANULOCYTES 1 % (Not Estab.); *LYMPHOCYTES 14 % (Not Estab.); *LYMPHS, ABSOLUTE 0.9 x10E3/uL (0.7-3.1); *MCH 30.7 pg (26.6-33.0); *MCHC 32.2 g/dL (31.5-35.7); *MCV 95 fL (79-97); *MONOCYTES 10 % (Not Estab.); *MONOS, ABSOLUTE 0.7 x10E3/uL (0.1-0.9); *NEUTROPHILS 73 % (Not Estab.); *NEUTROPHILS, ABSOLUTE 4.7 x10E3/uL (1.4-7.0); *PLT 139 x10E3/uL (150-450); *RDW 13.6 % (11.7-15.4)
[2022-08-01 12:06] LABS: *% CD 4 POS. LYMPH 32.4 % (30.8-58.5); *% CD 8 POS. LYMPH 26.7 % (12.0-35.5); *ABSOLUTE CD 4 HELPER 292 /uL (359-1519); *ABSOLUTE CD 8 SUPPRESSOR 240 /uL (109-897); *CD4/CD8 RATIO 1.21 (0.92-3.72)
== END 2022-07-31 19:43 | DRG 432 ==
LOC: MED 16:28
PROVIDERS: ADMIT Nurse Practitioner Acute Care; ATTEND Internal Medicine
PROC: 5A1D70Z Performance of Urinary Filtration, Intermittent, Less than 6 Hours Per Day (ICD-10-PCS; 2022-07-25)
PROC: 0W9G3ZZ Drainage of Peritoneal Cavity, Percutaneous Approach (ICD-10-PCS; principal; 2022-07-27)
DX: K74.60 Unspecified cirrhosis of liver (principal); G93.41 Metabolic encephalopathy; N18.6 End stage renal disease; I12.0 Hypertensive chronic kidney disease with stage 5 chronic kidney disease or end stage renal disease; N39.0 Urinary tract infection, site not specified; R18.8 Other ascites; E87.1 Hypo-osmolality and hyponatremia; D68.9 Coagulation defect, unspecified; J90 Pleural effusion, not elsewhere classified; E11.22 Type 2 diabetes mellitus with diabetic chronic kidney disease; F39 Unspecified mood [affective] disorder; K21.9 Gastro-esophageal reflux disease without esophagitis; Z98.51 Tubal ligation status; Z99.2 Dependence on renal dialysis; Z20.822 Contact with and (suspected) exposure to COVID-19; E66.01 Morbid (severe) obesity due to excess calories; Z68.39 Body mass index [BMI] 39.0-39.9, adult; E78.5 Hyperlipidemia, unspecified; J44.9 Chronic obstructive pulmonary disease, unspecified; Z90.49 Acquired absence of other specified parts of digestive tract; Z82.49 Family history of ischemic heart disease and other diseases of the circulatory system; R09.02 Hypoxemia; Z83.3 Family history of diabetes mellitus; Z80.9 Family history of malignant neoplasm, unspecified; Z79.51 Long term (current) use of inhaled steroids; Z79.899 Other long term (current) drug therapy; D63.8 Anemia in other chronic diseases classified elsewhere; Z91.010 Allergy to peanuts; G89.4 Chronic pain syndrome; E11.42 Type 2 diabetes mellitus with diabetic polyneuropathy; F17.200 Nicotine dependence, unspecified, uncomplicated; I27.20 Pulmonary hypertension, unspecified; M89.8X9 Other specified disorders of bone, unspecified site; E87.5 Hyperkalemia; C55 Malignant neoplasm of uterus, part unspecified; G47.33 Obstructive sleep apnea (adult) (pediatric); G72.9 Myopathy, unspecified; F29 Unspecified psychosis not due to a substance or known physiological condition; K72.90 Hepatic failure, unspecified without coma; Z99.81 Dependence on supplemental oxygen
CPT/HCPCS: 36415; 70450-TC; 71045-TC; 71250-TC; 76942-TC; 80048-TC; 80061-TC; 80076-TC; 80202-TC; 82962-TC; 83735-TC; 84100-TC; 85025-TC; 85610-TC; 86140-TC; 86360; 86480; 86644; 86645; 86706; 86803; 87040-TC; 87070-TC; 87081-TC; 87340; 87536; 87899; 90935-TC; 93307-TC; 94799-TC; G0378; J0696; J1815; J2270; J3370; J3490; J7030; J7060